=== PATIENT | male | born 1985 | race Two or more races ===

== ENCOUNTER → 2025-03-01 09:53 | Outpatient (REF) | payer BC, SELFPAY | LOC: RAD 09:53 | PROVIDERS: ATTENDING PHYSICIAN Internal Medicine Cardiovascular Disease; FAMILY PHYSICIAN Physician Assistant | DX: R07.9 Chest pain, unspecified (principal); R94.39 Abnormal result of other cardiovascular function study | CPT/HCPCS: 75574; Q9967 ==